=== PATIENT | female | born 1980 | race Caucasian/White ===

== ENCOUNTER 2021-03-12 14:59 | Observation (INO) | payer OTHER ==
[~2021-03-12] VITALS: Ht 165.1 cm; Wt 63.5 kg
[2021-03-12 17:57] LABS: HEMATOCRIT 37.8 % (36.0-47.0); MEAN CORPUSCULAR HEMOGLOBIN 34.4 pg (27.0-33.0); MEAN CORPUSCULAR VOLUME 92.9 fl (80.0-96.0); PLATELET COUNT, AUTOMATED 248 10^3/uL (150-450); RED BLOOD COUNT 4.07 10^6/uL (4.00-5.40); WHITE BLOOD COUNT 8.7 10^3/uL (4.0-10.0)
[2021-03-12 18:15] LABS: ALBUMIN 3.7 GM/DL (3.2-5.2); ALT/SGPT 71 U/L (12-78); BILIRUBIN,DIRECT 0.2 MG/DL (0.0-0.2); BILIRUBIN,TOTAL 0.8 MG/DL (0.2-1.0); LIPASE 171 U/L (73-393); TOTAL PROTEIN 7.3 GM/DL (6.4-8.2)
[2021-03-12] MEDS ORDERED: POTASSIUM CHLORIDE 10MEQ SR TABLET PO ONE (20:25)
[2021-03-12] MEDS ORDERED: NS 1,000 ML IV ONE (20:40)
[2021-03-12 22:56] LABS: CK-MB VALUE MASS < 1.0 NG/ML (<3.6); CPK CREATINE PHOSPHOKINASE 90 U/L (26-192); FREE T4 0.97 NG/DL (0.76-1.46); MAGNESIUM LEVEL 1.4 MG/DL (1.8-2.4); MB/CK RELATIVE INDEX 1.11 (< OR =4); TROPONIN I < 0.02 NG/ML (< 0.10)
[2021-03-12] MEDS ORDERED: MAG SULF 1GM/100ML (MAG RUN) 1 GM in IV 1 EA IV ONE (23:15)
[2021-03-13] MEDS ORDERED: POTASSIUM CHLORIDE 10MEQ SR TABLET PO ONE ×3 (00:35→07:30)
[2021-03-13 01:50] LABS: BLOOD UREA NITROGEN 7 MG/DL (7-18); CALCIUM LEVEL 7.3 MG/DL (8.5-10.1); CARBON DIOXIDE LEVEL 30 MEQ/L (21-32); CHLORIDE LEVEL 103 MEQ/L (98-107); CREATININE FOR GFR 0.62 MG/DL (0.55-1.30); GLOMERULAR FILTRATION RATE > 60.0 (>58); GLUCOSE, FASTING 97 MG/DL (70-100); MAGNESIUM LEVEL 1.9 MG/DL (1.8-2.4); POTASSIUM SERUM 2.4 MEQ/L (3.5-5.1); SODIUM LEVEL 139 MEQ/L (136-145)
[2021-03-13 01:55] LABS: BLOOD UREA NITROGEN 8 MG/DL (7-18); CALCIUM LEVEL 8.5 MG/DL (8.5-10.1); CARBON DIOXIDE LEVEL 31 MEQ/L (21-32); CHLORIDE LEVEL 98 MEQ/L (98-107); CREATININE FOR GFR 0.72 MG/DL (0.55-1.30); GLOMERULAR FILTRATION RATE > 60.0 (>58); GLUCOSE, FASTING 91 MG/DL (70-100); SODIUM LEVEL 139 MEQ/L (136-145)
[2021-03-13 01:57] LABS: POTASSIUM SERUM 2.4 MEQ/L (3.5-5.1)
[2021-03-13] MEDS ORDERED: HOME MED LIST COMPLETE! XX SCH (02:40)
[2021-03-13] MEDS ORDERED: LISI20TA35 PO (02:40)
[2021-03-13 03:18] LABS: RSV AMPLIFICATION NEGATIVE (NEGATIVE)
[2021-03-13] MEDS ORDERED: CALCIUM CARBONATE 500 MG CHEW U/D PO STA ×2 (03:35→06:45)
[2021-03-13] MEDS ORDERED: ACETAMINOPHEN TAB 650MG DOSE (2X325MG) PO PRN (03:35)
--- NOTE | 2021-03-13 03:55 | HPEPDOC ---
General Date of Admission 03/13/2021 Date of Service: Mar 13, 2021 Primary Care Physician: A Chief Complaint Abnormal lab Source: Patient, Old records Exam Limitations: No limitations Severity: Mild, Moderate Associated Symptoms: Denies Symptoms History of Present Illness Patient is a very pleasant 40 year old female with past medical history of hypertension and hypothyroidism presented to [facility] ED after being advised by primary care provider due to hypokalemia with K level of 2.4. She said she had mild tingling in bilateral hand finger tips but not now. She denies any current fatigue, muscle weakness, numbness, tingling, or loss of sensation. She said that she had prior hypokalemia with K level of 3.0. She has been out of hypothyroidism medication for a few days; patient said it's because she recently moved from [place]. She said she has been on hydrochlorothiazide for about 2 years, and her PCP just changed her home med to Lisinopril/HCTZ but she has not started the new medication as she had to come to ER Home Medications Scheduled Calcium Carbonate (Calcium) 500 Mg Tab.chew, 1 TAB PO BID Lisinopril (Lisinopril) 20 Mg Tablet, 1 TAB PO DAILY Magnesium Oxide (Magnesium Oxide) 400 Mg Tablet, 1 TAB PO BID for constipation Potassium Chloride (Potassium Chloride) 20 Meq Tablet.er, 1 TAB PO DAILY Allergies Coded Allergies: No Known Drug Allergies (Verified Allergy, Unknown, 03/12/21) Past Medical History Medical History Hypertension Hypothyroidism Surgical History Family History Mother has hypertension Father has hypothyroidism Social History * Smoker: Denies Recent Travel/Sick Contacts: Denies: Recent sick contacts Moved from [place] in December. A-FIB/CHADSVASC A-FIB History Current/History of A-Fib/PAF?: No Review of Systems Constitutional: Denies: Chills, Fever, Weakness Eyes: Reports: Other (left lower eyelid stye eye started on 03/12/2021); Denies: Vision change ENT: Denies: Dysphagia, Sore Throat Skin: Reports: Rash (left lower eyelid) Pulmonary: Denies: Dyspnea, Cough Cardiovascular: Denies: Chest Pain, Palpitations Gastrointestinal: Denies: Nausea, Vomiting, Abdominal Pain, Diarrhea, Constipation, Hematochezia Genitourinary: Denies: Dysuria, Hematuria Musculoskeletal: Denies: Muscle Pain Neurological: Denies: Weakness, Numbness Psych: Reports: Mood Normal; Denies: Thoughts of Self Harm, Thoughts of Harming Other Other systems Last menstrual period 03/08/2021 with regular menstrual period Physical Examination General Exam: Positive: Alert, Cooperative, No Acute Distress Eye Exam: Positive: Other Eye Symptoms (A small mildly erythematous lump in le ft lower eyelid without active drainage or bleeding); Negative: Sclera icteric Neck Exam: Positive: Supple Chest Exam: Positive: Clear to auscultation, Normal air movement; Negative: Rales, Rhonchi, Wheezing, Diminished Heart Exam: Positive: Rate Normal, Regular Rhythm, Normal S1; Negative: Murmurs Abdomen Exam: Positive: Normal bowel sounds, Soft; Negative: Tenderness Extremity Exam: Negative: Cyanosis, Edema, Swelling Skin Exam: Positive: Nl turgor and temperature; Negative: Rash, Breakdown Neuro Exam: Positive: Strength at 5/5 X4 ext, Normal Tone, Sensation Intact, Cranial Nerves 3-12 NL Psych Exam: Positive: Mental status NL, Mood NL, Memory Intact, Oriented x 3 Vital Signs Vital Signs Date Time Temp Pulse Resp B/P (MAP) Pulse Ox O2 Delivery O2 Flow Rate FiO2 03/13/21 03:07 98.1 82 18 132/76 (94) 97 03/12/21 15:27 Room Air Laboratory Data Labs 24H Laboratory Tests 2 03/12/21 17:14: POC Glucose (Misc Panel) 102, POC Sodium (Misc Panel) 139, POC Potassium (Misc Panel) 2.3*L, POC Chloride (Misc Panel) 92L, POC Total CO2 (Misc Panel) 29.0H, POC Blood Urea Nitrogen (Misc Panel 7L, POC Ionized Calcium (Misc Panel) 4.2L, POC Creatinine (Misc Panel) 0.6, POC Hematocrit (Misc Panel) 40.0 03/12/21 17:21: Nucleated Red Blood Cells % (auto) 0.0, Anion Gap 10, Glomerular Filtration Rate > 60.0, Calcium Level 8.5, Magnesium Level 1.4L, Total Bilirubin 0.8, Direct B ilirubin 0.2, Aspartate Amino Transf (AST/SGOT) 86H, Alanine Aminotransferase (ALT/SGPT) 71, Alkaline Phosphatase 83, Total Creatine Kinase 90, Creatine Kinase MB < 1.0, Creatine Kinase MB Relative Index 1.11, Troponin I < 0.02, Total Protein 7.3, Albumin 3.7, Albumin/Globulin Ratio 1.0L, Lipase 171, Thyroid Stimulating Hormone (TSH) 2.260, Free Thyroxine 0.97 03/12/21 21:51: POC Beta HCG, Quantitative < 5.0 03/13/21 00:44: Anion Gap 6L, Glomerular Filtration Rate > 60.0, Calcium Level 7.3L, Magnesium Level 1.9, Whole Blood Ionized Calcium 3.8L 03/13/21 02:28: Coronavirus (COVID-19)(PCR) NEGATIVE, Influenza Type A (RT-PCR) NEGATIVE, Influenza Type B (RT-PCR) NEGATIVE, Respiratory Syncytial Virus (PCR) NEGATIVE CBC/BMP Laboratory Tests 03/12/21 17:21 03/13/21 00:44 Assessment/Plan 1. Hypokalemia likely due to hypomagnesemia and/or home diuretics -asymptomatic without paresthesia, lethargy, or muscle weakness -K of 2.4 upon presentation to ER, s/p total 80meq of KCl -Mag of 1.4 upon initial ER presentation, s/p repletion, now 1.9 -tele monitor, will continue with potassium repletion -hold home anti-hypertensive medication for now -urine K ordered 2. Hypomagnesemia, resolved, likely secondary to home diuretic -s/p repletion -repeat IV Magnesium level in the morning 3. Hypocalemia likely associated with dilutional effect -Initial serum calcium level within reference range.; upon recheck corrected Calcium level was low. Ionized calcium level also low as well -S/p IV Calcium gluconate, PO calcium carbonate ordered -PTH opending -follow up with BMP 4. Hypertension -blood pressure currently stable -hold home anti-hypertensive medication for now due to electrolyte disturbance 5. Hypothyroidism -patient said that she is on levothyroxine 25mcg at home, and has been out of medication for a few days -TSH and free T4 within normal range today. Consider resuming home levothyroxine dose in the morning when electrolytes are stable 5. Left lower eyelide chalazion -a very small erythematous lump in left lower eyelid without active pus, bleeding, or drainage. Patient denies vision changes. Extra-ocular movement intact -apply warm compress 5-10 minutes three times a day -monitor closely for worsening symptoms, vision changes, eye pain, or signs of infection DVT prophylaxis: SCD and TEDS Plan / VTE VTE Prophylaxis Ordered?: Yes (SCD and TEDS) GME ATTESTATION GME ATTESTATION My faculty preceptor for this patient encounter was physically present during the encounter and was fully available. All aspects of the patient interview, examination, medical decision making process, and medical care plan development were reviewed and approved by the faculty preceptor. The faculty preceptor is aware and concurs with the plan as stated in the body of this note and will attest to such by his/her cosignature. ATTENDING NOTE I, Carmelo Lincoln, performed a history and physical exam of the patient and discuss his/or her management with the resident. I reviewed the residents note and agree with the documented findings and plan of care. CONSTANCE COVINGTON DO Mar 13, 2021 03:55 CARMELO LINCOLN DO Mar 14, 2021 19:26
[2021-03-13 04:16] LABS: PHOSPHORUS LEVEL 2.9 MG/DL (2.5-4.9)
[2021-03-13 04:45] VITALS: BP 139/91
[2021-03-13 05:10] LABS: HEMATOCRIT 34.1 % (36.0-47.0); HEMOGLOBIN 12.2 g/dl (12.0-15.5); MEAN CORPUSCULAR HEMOGLOBIN 33.7 pg (27.0-33.0); MEAN CORPUSCULAR HGB CONC 35.8 g/dl (32.0-36.5); MEAN CORPUSCULAR VOLUME 94.2 fl (80.0-96.0); PLATELET COUNT, AUTOMATED 201 10^3/uL (150-450); RED BLOOD COUNT 3.62 10^6/uL (4.00-5.40); WHITE BLOOD COUNT 6.5 10^3/uL (4.0-10.0)
[2021-03-13 05:32] LABS: BLOOD UREA NITROGEN 6 MG/DL (7-18); CALCIUM LEVEL 7.4 MG/DL (8.5-10.1); CARBON DIOXIDE LEVEL 29 MEQ/L (21-32); CHLORIDE LEVEL 103 MEQ/L (98-107); CREATININE FOR GFR 0.68 MG/DL (0.55-1.30); GLOMERULAR FILTRATION RATE > 60.0 (>58); GLUCOSE, FASTING 95 MG/DL (70-100); MAGNESIUM LEVEL 1.7 MG/DL (1.8-2.4); POTASSIUM SERUM 2.6 MEQ/L (3.5-5.1); SODIUM LEVEL 140 MEQ/L (136-145)
[2021-03-13] MEDS ORDERED: MAGNESIUM OXIDE 400MG TAB (MAG-OX) PO STA (05:46)
[2021-03-13 09:15] LABS: BLOOD UREA NITROGEN 5 MG/DL (7-18); CALCIUM LEVEL 7.7 MG/DL (8.5-10.1); CARBON DIOXIDE LEVEL 29 MEQ/L (21-32); CHLORIDE LEVEL 105 MEQ/L (98-107); CREATININE FOR GFR 0.57 MG/DL (0.55-1.30); GLOMERULAR FILTRATION RATE > 60.0 (>58); GLUCOSE, FASTING 90 MG/DL (70-100); POTASSIUM SERUM 2.8 MEQ/L (3.5-5.1); SODIUM LEVEL 140 MEQ/L (136-145)
[2021-03-13] MEDS: MAG SULF 1GM/100ML (MAG RUN) 1 GM in IV 1 EA IV SCH ×2 (09:29→10:26)
[2021-03-13] MEDS: KCL 10MEQ/100ML SWI (KRUN) 10 MEQ in IV 1 EA IV SCH ×4 (09:43→13:48)
[2021-03-13 11:56] VITALS: BP 111/72
[2021-03-13 12:19] LABS: MAGNESIUM LEVEL 1.9 MG/DL (1.8-2.4)
[2021-03-13 12:48] LABS: BLOOD UREA NITROGEN 5 MG/DL (7-18); CALCIUM LEVEL 7.9 MG/DL (8.5-10.1); CARBON DIOXIDE LEVEL 28 MEQ/L (21-32); CHLORIDE LEVEL 106 MEQ/L (98-107); CREATININE FOR GFR 0.59 MG/DL (0.55-1.30); GLOMERULAR FILTRATION RATE > 60.0 (>58); GLUCOSE, FASTING 124 MG/DL (70-100); POTASSIUM SERUM 3.1 MEQ/L (3.5-5.1); SODIUM LEVEL 139 MEQ/L (136-145)
[2021-03-13] MEDS ORDERED: CALCIUM GLUCONATE 1,000 MG in D5W MINI-BAG PLUS 100 ML IV ONE (14:00)
[2021-03-13 16:15] VITALS: BP 120/83
[2021-03-13 16:37] LABS: MAGNESIUM LEVEL 2.3 MG/DL (1.8-2.4)
[2021-03-13 16:41] LABS: BLOOD UREA NITROGEN 5 MG/DL (7-18); CALCIUM LEVEL 8.2 MG/DL (8.5-10.1); CARBON DIOXIDE LEVEL 29 MEQ/L (21-32); CHLORIDE LEVEL 110 MEQ/L (98-107); CREATININE FOR GFR 0.73 MG/DL (0.55-1.30); GLOMERULAR FILTRATION RATE > 60.0 (>58); GLUCOSE, FASTING 106 MG/DL (70-100); POTASSIUM SERUM 3.5 MEQ/L (3.5-5.1); SODIUM LEVEL 142 MEQ/L (136-145)
[2021-03-13] MEDS ORDERED: LISI20TA33 PO (17:34)
[2021-03-13] MEDS ORDERED: CALC500T68 PO (17:35)
[2021-03-13] MEDS ORDERED: POTA1TAB14 PO (17:36)
[2021-03-13] MEDS ORDERED: MAGN400T2 PO (17:36)
--- NOTE | 2021-03-13 18:21 | DS.PDOC ---
Discharge Summary General Date of Admission Mar 12, 2021 at 15:00 Date of Discharge 03/13/2021 Discharge Summary PROCEDURES PERFORMED DURING STAY: [None]. ADMITTING DIAGNOSES: Hypokalemia Hypomagnesemia Hypocalcemia Hypertension Hypothyroidism Left lower eyelid chalazion DISCHARGE DIAGNOSES: Hypokalemia Hypomagnesemia Hypocalcemia Hypertension Hypothyroidism Left lower eyelid chalazion COMPLICATIONS/CHIEF COMPLAINT: Hypocalcemia, Hypokalemia, Hypomagnesemia. HISTORY OF PRESENT ILLNESS: "Patient is a very pleasant 40 year old female with past medical history of hypertension and hypothyroidism presented to [facility] ED after being advised by primary care provider due to hypokalemia with K level of 2.4. She said she had mild tingling in bilateral hand finger tips but not now. She denies any current fatigue, muscle weakness, numbness, tingling, or loss of sensation. She said that she had prior hypokalemia with K level of 3.0. She has been out of hypothyroidism medication for a few days; patient said it's because she recently moved from [place]. She said she has been on hydrochlorothiazide for about 2 years, and her PCP just changed her home med to Lisinopril/HCTZ but she has not started the new medication as she had to come to ER" HOSPITAL COURSE: Patient's hypokalemia and hypomagnesemia replaced with IV and p.o. formulations. Patient's calcium was replaced. Blood pressure was 120/83 on discharge. She was stable without chest pain palpitations nausea vomiting diarrhea. Patient was going to follow-up with primary care doctor to repeat BMP. She was referred to nephrology. DISCHARGE MEDICATIONS: Please see below. ALLERGIES: Please see below. PHYSICAL EXAMINATION ON DISCHARGE: VITAL SIGNS: please see below General: NAD, comfortable HEENT: PERRLA, EOMI, sclerae clear Neck: supple, normal ROM, no JVD Respiratory: lungs CTAB, no wheeze, no rales, no crackles CVS: RRR, normal S1, S2, no murmurs Abdo: soft, no masses, no hepatosplenomegaly, BS+, no rebound tenderness Extremities: no edema, pulses 2+ MSK: no joint deformities, normal ROM Neuro: no focal neuro deficits, moving all 4 extremities, CN2-12 intact. Strength 5/5 in all 4 extremities. No nystagmus. Psych: calm, cooperative, AAO x 3 LABORATORY DATA: Please see below. PROGNOSIS: Good ACTIVITY: [As tolerated]. DIET: As tolerated DISCHARGE PLAN: DC home follow with PCP to repeat BMP. Follow-up with nephrology in 1 to 2 weeks. Apply warm compress to left eye, for chalazion. Advised to stop taking hydrochlorothiazide. Resume lisinopril. DISPOSITION: Home DISCHARGE CONDITION: [Stable]. TIME SPENT ON DISCHARGE: 35 minutes Vital Signs/I&Os Vital Signs Date Time Temp Pulse Resp B/P (MAP) Pulse Ox O2 Delivery O2 Flow Rate FiO2 03/13/21 16:15 97.6 88 18 120/83 (95) 100 Room Air I&O- Last 24 Hours up to 6 AM 03/13/21 06:00 Intake Total 1240 ml Balance 1240 ml Laboratory Data Labs 24H Laboratory Tests 2 03/12/21 21:51: POC Beta HCG, Quantitative < 5.0 03/13/21 00:44: Anion Gap 6L, Glomerular Filtration Rate > 60.0, Calcium Level 7.3L, Whole Blood Ionized Calcium 3.8L, Phosphorus Level 2.9, Magnesium Level 1.9 03/13/21 02:28: Coronavirus (COVID-19)(PCR) NEGATIVE, Influenza Type A (RT-PCR) NEGATIVE, Influenza Type B (RT-PCR) NEGATIVE, Respiratory Syncytial Virus (PCR) NEGATIVE 03/13/21 04:50: Anion Gap 8, Glomerular Filtration Rate > 60.0, Calcium Level 7.4L, Magnesium Level 1.7L, Nucleated Red Blood Cells % (auto) 0.0 03/13/21 07:09: Whole Blood Ionized Calcium 4.0L 03/13/21 08:17: Anion Gap 6L, Glomerular Filtration Rate > 60.0, Calcium Level 7.7L, Magnesium Level 1.9 03/13/21 11:46: Anion Gap 5L, Glomerular Filtration Rate > 60.0, Calcium Level 7.9L 03/13/21 16:04: Whole Blood Ionized Calcium 4.4L, Anion Gap 3L, Glomerular Filtration Rate > 60.0, Calcium Level 8.2L, Magnesium Level 2.3 CBC/BMP Laboratory Tests 03/13/21 00:44 03/13/21 04:50 03/13/21 08:17 03/13/21 11:46 03/13/21 16:04 Discharge Medications Scheduled Calcium Carbonate (Calcium) 500 Mg Tab.chew, 1 TAB PO BID Lisinopril (Lisinopril) 20 Mg Tablet, 1 TAB PO DAILY Magnesium Oxide (Magnesium Oxide) 400 Mg Tablet, 1 TAB PO BID for constipation Potassium Chloride (Potassium Chloride) 20 Meq Tablet.er, 1 TAB PO DAILY Allergies Coded Allergies: No Known Drug Allergies (Verified Allergy, Unknown, 03/12/21) KARL RAMIREZ MD Mar 13, 2021 18:21
--- NOTE | 2021-03-13 19:20 | ECGEPIP ---
[facility] - ED Test Date: 2021-03-12 Pat Name: BETTY HARKINS Department: Room: - Gender: Female [employer] Person: GERRY : 1980 Requested By: SCOOTER Lei PA-C Order Number: [id number] Reading MD: Yesika Ward Measurements Intervals [place] Rate: 101 P: 74 UT: 148 QRS: 75 QRSD: 88 T: 57 QT: 394 QTc: 510 Interpretive Statements Sinus tachycardia Nonspecific ST T wave changes Delayed R wave progression Prolonged QTc No prior ECG for comparison Electronically Signed on 03-13-2021 19:20:34 EDT by Yesika Ward
[2021-03-13 22:06] LABS: TOTAL 25(OH) VITAMIN D 10.6 NG/ML (30.0-100.0)
== END 2021-03-13 19:38 | disposition home or self-care (01) ==
LOC: M ED 14:59 → M ED INP 15:00 → M PCU 03-13 04:40
PROVIDERS: ADMIT Internal Medicine; ATTEND Internal Medicine
DX: E87.6 Hypokalemia (principal); E83.42 Hypomagnesemia; E83.51 Hypocalcemia; I10 Essential (primary) hypertension; E03.9 Hypothyroidism, unspecified; H00.15 Chalazion left lower eyelid; R20.2 Paresthesia of skin; Z87.891 Personal history of nicotine dependence
CPT/HCPCS: 36415; 80047; 80048; 80076; 82306; 82330; 82550; 82553; 83690; 83735; 83970; 84100; 84439; 84443; 84484; 84702; 85027; 87631; 93005; 96360; 96376; 99284; J0610; J3475